=== PATIENT | male | born 1965 | race American Indian/Alaskan Native ===

== ENCOUNTER 2017-09-16 06:07 | Outpatient (CLI) | payer OTHER ==
--- NOTE | 2017-09-16 08:30 | Cat Scan Report ---
CT ABDOMEN WITH AND WITHOUT CONTRAST: HISTORY: Right upper quadrant abdominal pain. COMPARISON: none. TECHNIQUE: Helical CT in 2.5 mm intervals before and after IV contrast and with oral contrast. Sagittal and coronal reconstructions. FINDINGS: Lung bases: Normal. Liver: Normal. Biliary system: Normal. Pancreas: Normal. Spleen: Normal. Kidneys: Normal. Adrenal glands: Normal. Aorta: Normal. Intestines: Normal. Appendix: Normal. Ascites: None. Adenopathy: None. Musculoskeletal: Normal. IMPRESSION: Unremarkable CT scan of the abdomen with and without contrast. No explanation for right upper quadrant abdominal pain.
== END 2017-09-16 06:08 | disposition home or self-care (01) ==
LOC: CT 06:07
DX: R10.11 Right upper quadrant pain (principal); R14.0 Abdominal distension (gaseous); I10 Essential (primary) hypertension
CPT/HCPCS: 74170; Q9967

== ENCOUNTER 2018-04-24 09:35 | Day surgery (SDC) | payer OTHER ==
[2018-04-24 11:22] VITALS: BP 130/95
[2018-04-24] MEDS ORDERED: NACL 0.9% 1000 ML 1,000 ML IV SCH (12:00)
== END 2018-04-24 09:36 | disposition home or self-care (01) ==
LOC: GIO 09:35
PROVIDERS: ATTEND Internal Medicine Gastroenterology
DX: K21.9 Gastro-esophageal reflux disease without esophagitis (principal); K92.1 Melena; R19.4 Change in bowel habit; R12 Heartburn; E78.00 Pure hypercholesterolemia, unspecified; I10 Essential (primary) hypertension; G47.30 Sleep apnea, unspecified; Z53.8 Procedure and treatment not carried out for other reasons; Z79.899 Other long term (current) drug therapy
CPT/HCPCS: J7030

== ENCOUNTER 2018-05-29 10:01 | Day surgery (SDC) | payer OTHER ==
[~2018-05-29 10:01] MED LIST: NACL 0.9% 1000 ML 1,000 ML IV SCH
--- NOTE | 2018-05-29 10:41 | Anesthesia Day of Surgery ---
Anesthesia Day of Surgery - Day of Surgery Patient Examined: Yes Patient H&P Reviewed: Yes Patient is NPO: Yes
--- NOTE | 2018-05-29 10:41 | Anesthesia Consultation ---
Anesthesia Consult and Med Hx Date of service: 05/29/18 - Airway Anesthetic Teeth Evaluation: Partials ROM Head & Neck: Adequate Mental/Hyoid Distance: Adequate Mallampati Class: Class II Intubation Access Assessment: Probably Good - Pulmonary Exam CTA: Yes - Cardiac Exam Cardiac Exam: RRR - Pre-Operative Health Status ASA Pre-Surgery Classification: ASA3 Proposed Anesthetic Plan: MAC - Pulmonary Hx Sleep Apnea: Yes (sleep study pending, not on cpap) - Cardiovascular System Hx Hypertension: Yes - Gastrointestinal Hx Gastroesophageal Reflux Disease: Yes (food or ETOH dependant, presently asymptomatic) - Endocrine Hx Liver Disease: Yes (elevated liver enzymes) - Other Systems Hx Alcohol Use: Yes (1 pint per day)
[2018-05-29] MEDS ORDERED: WATER FOR IRRIG STERILE IR ONE (12:17)
[2018-05-29] MEDS ORDERED: WATER FOR IRRIG STERILE ONE (12:18)
[2018-05-29] MEDS ORDERED: DIPRIVAN 10 MG/ML IV ONE ×3 (13:47)
--- NOTE | 2018-05-29 13:59 | Operative Report ---
Operative Report Operative Report: Date of procedure: 05/29/2018 Procedure: Colonoscopy. Attending physician: Martell Wang MD Vending Route Servicer: Martell Wang MD Indication: Patient is a 53-year-old male who presents for colonoscopy for rectal bleeding and change in bowel habits. A colonoscopy serves to evaluate patient so that treatment may be directed based on the findings. Consent: Informed consent was obtained after advising the patient and family regarding nature of this procedure, its indications, potential benefits as well as possible complications including but not limited to bleeding perforation and adverse reaction to medication, infection as well as other cardiopulmonary complications. An informed written and verbal consent was then obtained after due opportunity was provided for questions and answers. Monitoring: Patient was monitored continuously with pulse oximetry and electrocardiographic recordings as well as blood pressure recordings. Vital signs remained stable throughout this procedure with no untoward events. Preoperative assessment: Patient was assessed immediately prior to this procedure for capacity to tolerate monitored anesthesia care and moderate sedation as well as general anesthesia. Patient's ASA classification is 2, Mallampati class is 2, Hyomental distance is 3. Instrument: Pipern video colonoscope Medications: Propofol given intravenously in divided doses. For details please refer to anesthesia records. Description of procedure: Patient was placed in the left lateral decubitus po sition after achieving sedation, a digital rectal examination was performed following which the colonoscope was introduced into the anal verge and advanced to the cecum which was identified by the ileocecal valve, the appendiceal orifice, as well as by the cecal strap and direct transillumination. The colonoscope was subsequently withdrawn with careful inspection of all mucosal surfaces. Patient tolerated this procedure well and was subsequently taken to the recovery room. The following findings were noted. Findings: The entirety of the colon to the cecum normal.. The preparation was adequate. On the retroflex view at the anal verge, patient had internal hemorrhoids. Impression: Internal hemorrhoids otherwise normal colonoscopy. Plan: High-fiber diet. Repeat colonoscopy in 10 years. May benefit from hemorrhoidal band ligation near future.
--- NOTE | 2018-05-29 14:00 | Discharge Summary ---
Short Stay Discharge Plan Activity: advance as tolerated Weight Bearing Status: Weight Bear as Tolerated Diet: regular Additional Instructions: Post Sedation D/C Instructions When you return home you may resume your regular diet unless otherwise directed. -Go directly home from the hospital and rest quietly. You may resume normal activities tomorrow. -Do NOT drive, return to work, operate any machinery or make any important personal or business decisions today. -Do NOT drink any alcohol or take nerve or sleeping drugs. They add to the effects of the medicine still present in your body. Follow up with: GLORIA DESHPANDE NP-C [Primary Care Provider] - 7 Days
[2018-05-29 14:19] VITALS: BP 141/107
== END 2018-05-29 10:02 | disposition home or self-care (01) ==
LOC: GIO 10:01
PROVIDERS: ATTEND Internal Medicine Gastroenterology
DX: K64.8 Other hemorrhoids (principal); K62.5 Hemorrhage of anus and rectum; R19.4 Change in bowel habit; E78.00 Pure hypercholesterolemia, unspecified; I10 Essential (primary) hypertension; G47.30 Sleep apnea, unspecified; K21.9 Gastro-esophageal reflux disease without esophagitis; Z79.899 Other long term (current) drug therapy; Z87.891 Personal history of nicotine dependence; Z72.89 Other problems related to lifestyle; Z88.8 Allergy status to other drugs, medicaments and biological substances
CPT/HCPCS: 45378; J2704; J7030

== ENCOUNTER 2018-12-03 07:20 | Day surgery (SDC) | payer OTHER ==
[2018-12-03] MEDS ORDERED: WATER FOR IRRIG STERILE IR ONE (07:26)
--- NOTE | 2018-12-03 08:18 | Anesthesia Consultation ---
Anesthesia Consult and Med Hx Date of service: 12/03/18 - Airway Anesthetic Teeth Evaluation: Good, Partials ROM Head & Neck: Adequate Mental/Hyoid Distance: Adequate Mallampati Class: Class II Intubation Access Assessment: Good - Pulmonary Exam CTA: Yes - Cardiac Exam Cardiac Exam: RRR - Pre-Operative Health Status ASA Pre-Surgery Classification: ASA3 Proposed Anesthetic Plan: MAC, TIVA - Pre-Anesthesia Comment Pre-Anesthesia Comments: suspected kenn...going for sleep study after egd - Pulmonary Hx Sleep Apnea: Yes (sleep study pending, not on cpap) - Cardiovascular System Hx Hypertension: Yes - Gastrointestinal Hx Gastroesophageal Reflux Disease: Yes (food or ETOH dependant, presently asymptomatic) - Endocrine Hx Liver Disease: Yes (elevated liver enzymes) - Other Systems Hx Alcohol Use: Yes (1 pint per day)
--- NOTE | 2018-12-03 08:18 | Anesthesia Day of Surgery ---
Anesthesia Day of Surgery - Day of Surgery Patient Examined: Yes Patient H&P Reviewed: Yes Patient is NPO: Yes Beta Blockers: Yes
[2018-12-03] MEDS ORDERED: DIPRIVAN 10 MG/ML IV ONE ×3 (08:44)
--- NOTE | 2018-12-03 09:49 | Operative Report ---
Operative Report Operative Report: DOS: 12/03/18 SURGEON: Munir Morales MD EGD with biopsy REPORT PREOPERATIVE DIAGNOSIS and POSTOPERATIVE DIAGNOSIS: Melena ESTIMATED BLOOD LOSS: minimal DESCRIPTION OF PROCEDURE: A high-resolution EGD scope was passed through the oropharynx, esophagus, stomach, and second portion of duodenum. The scope was carefully withdrawn. Retroflexion was performed in the stomach. At the end of the procedure, the scope was cleaned using normal technique. Vital signs monitored continuously throughout. SEDATION: Provided by Anesthesiology Services. COMPLICATIONS: None. FINDINGS: * Normal duodenum * Mild gastritis of the antrum and body, Biopsies were taken to rule out H. Pylori infection. A total of 5 biopsies were taken, 2 from the antrum, 1 from the incisura, 2 from the body. 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
[2018-12-03 13:54] VITALS: BP 127/83
== END 2018-12-03 07:21 | disposition home or self-care (01) ==
LOC: GIO 07:20
PROVIDERS: ATTEND Student in an Organized Health Care Education/Training Program
DX: K29.50 Unspecified chronic gastritis without bleeding (principal); K21.0 Gastro-esophageal reflux disease with esophagitis; E78.00 Pure hypercholesterolemia, unspecified; I10 Essential (primary) hypertension; G47.30 Sleep apnea, unspecified; Z88.8 Allergy status to other drugs, medicaments and biological substances; Z79.82 Long term (current) use of aspirin; Z72.89 Other problems related to lifestyle
CPT/HCPCS: 43239; 88305; 88342; J2704; J7030